=== PATIENT | male | born 1990 | race Caucasian/White ===

== ENCOUNTER → 2018-07-13 | Day surgery (SDC) | payer BC ==
[~2018-07-13] MED LIST: Lactated Ringers 1,000 ML IV SCH; Propofol 200 MG/20 ML SDV IV ONE
[2018-07-13 13:37] VITALS: BP 109/67
--- NOTE | 2018-07-26 13:21 | OR ---
DATE OF OPERATION: 07/13/2018 PREOPERATIVE DIAGNOSIS: CHRONIC GASTROESOPHAGEAL REFLUX DISEASE. POSTOPERATIVE DIAGNOSIS: CHRONIC GASTROESOPHAGEAL REFLUX DISEASE. SURGEON: Philipp Bernabe MD PROCEDURE: ESOPHAGOGASTRODUODENOSCOPY WITH WEI. 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 COMPLICATIONS: None. SPECIMEN: WEI. FINDINGS: 1. Full-length EGD. 2. Small hiatal hernia with GERD. 3. No distal esophagitis, stricturing, ulceration, or Velasquez's changes. RECOMMENDATIONS: Ongoing medical management. INDICATIONS: The patient has been having some persistent reflux symptoms. He elected to proceed with EGD. DESCRIPTION OF PROCEDURE: The patient was prepped and draped, placed in left lateral decubitus position. A lubricated Olympus gastroscope was inserted over a bit and advanced to cricopharyngeus area and easily intubated into the esophagus. Esophageal lining was benign in its entire course. The Z-line was crisp and sharp at 39 cm. Maybe a very small hernia present with some spontaneous reflux visualized, but no signs of distal esophagitis, stricturing, ulceration, or Velasquez's changes. The scope was advanced into the stomach through the pylorus and into the second portion of the duodenum. This and the duodenal bulb were benign. The scope was brought back into the stomach and retroflexed. No lesions or abnormalities seen in the upper fundus or cardia. Upon straightening, the rest of the gastric fundus and antrum were evaluated thoroughly. No polyps, mass, ulceration, or bleeding sites. No significant signs of peptic ulcer disease. CLOtest was obtained. Air was suctioned. Scope removed without complication. ARIANA/LUIS /[id number]
== END ==
LOC: CC.SDS 11:52
PROVIDERS: ATTEND Family Medicine
DX: K21.9 Gastro-esophageal reflux disease without esophagitis (principal); K44.9 Diaphragmatic hernia without obstruction or gangrene; F41.9 Anxiety disorder, unspecified; F32.9 Major depressive disorder, single episode, unspecified; Z79.899 Other long term (current) drug therapy; Z88.1 Allergy status to other antibiotic agents; Z88.5 Allergy status to narcotic agent
CPT/HCPCS: 43239; J2704; J7120